=== PATIENT | male | born 2000 | race Caucasian/White ===

== ENCOUNTER 2021-08-28 22:26 | Emergency (ER) | payer OTHER ==
[~2021-08-28] VITALS: Ht 177.8 cm; Wt 93.0 kg
[2021-08-28] MEDS ORDERED: ALBU90OI INH (22:41)
[2021-08-28] MEDS ORDERED: ESCI20 PO (22:41)
[2021-08-28] MEDS ORDERED: SPIR25 PO (22:42)
== END 2021-08-29 01:05 | disposition home or self-care (01) ==
LOC: ER 22:26
DX: S71.112A Laceration without foreign body, left thigh, initial encounter (principal); W26.0XXA Contact with knife, initial encounter; Z79.899 Other long term (current) drug therapy; J45.909 Unspecified asthma, uncomplicated
CPT/HCPCS: 12002; 90471; 90714; 99283-25